=== PATIENT | male | born 1985 | race American Indian/Alaskan Native ===

== ENCOUNTER 2022-05-11 19:20 | Emergency (ER) | payer OTHER ==
[~2022-05-11] VITALS: Ht 170.2 cm; Wt 70.0 kg
[2022-05-11 19:45] VITALS: BP 135/90
[2022-05-11] MEDS ORDERED: TETanus/Pertussis (Acell)/Diphther VAC/PF (Tdap-Adult) 0.5ml syringe IMVAC ONE (19:55)
[2022-05-11] MEDS ORDERED: LIDOcaine 1%/PF 5ML 10 MG/ML VIAL IJ ONE (22:25)
== END 2022-05-11 23:56 | disposition home or self-care (01) ==
LOC: ER 19:21
DX: S61.012A Laceration without foreign body of left thumb without damage to nail, initial encounter (principal); W45.8XXA Other foreign body or object entering through skin, initial encounter; Y93.89 Activity, other specified; Y92.89 Other specified places as the place of occurrence of the external cause; Y99.8 Other external cause status
CPT/HCPCS: 12002; 73130; 90471; 90715; 99283; A6449

== ENCOUNTER 2022-05-22 08:14 | Emergency (ER) | payer OTHER ==
[~2022-05-22] VITALS: Ht 170.2 cm; Wt 68.2 kg
[2022-05-22 08:23] VITALS: BP 132/81
== END 2022-05-22 08:56 | disposition home or self-care (01) ==
LOC: ER 08:15
DX: S61.412D Laceration without foreign body of left hand, subsequent encounter (principal); Z48.00 Encounter for change or removal of nonsurgical wound dressing; X58.XXXD Exposure to other specified factors, subsequent encounter
CPT/HCPCS: 99281